=== PATIENT | female | born 1985 | race African-American/Black ===

== ENCOUNTER 2017-04-13 18:40 | Emergency (ER) | payer BC ==
--- NOTE | 2017-04-13 19:01 | EDM.PDOC ---
ED HPI GENERAL MEDICAL PROBLEM - General Chief Complaint: Genitourinary Problem Stated Complaint: PAIN DURING URINATION Time Seen by Provider: 04/13/17 18:58 Source of Information: Reports: Patient History Limitations: Reports: No Limitations - History of Present Illness INITIAL COMMENTS - FREE TEXT/NARRATIVE: Patient is a 31-year-old female who presents to the ED complaining of painful urination that started this past . States is progressively worsened. She does have a history of UTIs in the past to which she states symptoms are similar to previous episodes. She denies any fever/chills, nausea/vomiting, abdominal pain, back pain, or any additional complaints. Patient states she is not she had a tubal ligation. She is sexually active in does go to the bathroom after having intercourse. She denies any history of STDs, abnormal vaginal discharge, and vaginal bleeding. Lower Pelvic Pain Score (Numeric/FACES): 5 - Related Data Allergies Allergy/AdvReac Type Severity Reaction Status Date / Time No Known Allergies Allergy Verified 04/13/17 18:50 Home Meds: Home Meds Nitrofurantoin Monohyd/M-Cryst [Macrobid 100 mg Capsule] 100 mg PO BID #10 capsule 04/13/17 [Rx] Past Medical History - Past Health History Medical/Surgical History: Denies Medical/Surgical History Social & Family History - Family History Family Medical History: Noncontributory - Tobacco Use Smoking Status *Q: Never Smoker Second Hand Smoke Exposure: No - Caffeine Use Caffeine Use: Reports: Soda, Tea - Recreational Drug Use Recreational Drug Use: No ED ROS GENERAL - Review of Systems Review Of Systems: ROS reveals no pertinent complaints other than HPI. ED EXAM, RENAL/ - Physical Exam Exam: See Below Exam Limited By: No Limitations General Appearance: Alert, WD/WN, No Apparent Distress Ears: Normal External Exam, Hearing Grossly Normal Nose: Normal Inspection Throat/Mouth: Normal Voice, No Airway Compromise Neck: Normal Inspection, Supple Respiratory/Chest: No Respiratory Distress, Lungs Clear, Normal Breath Sounds, No Accessory Muscle Use Cardiovascular: Normal Peripheral Pulses, Regular Rate, Rhythm GI/Abdominal: Normal Bowel Sounds, Soft, Non-Tender Back Exam: No: CVA Tenderness (L), CVA Tenderness (R) Neurological: Alert, Oriented, CN II-XII Intact, Normal Cognition, No Motor/ Sensory Deficits Psychiatric: Normal Affect, Normal Mood Skin Exam: Warm, Dry, Intact, Normal Color Course - Vital Signs Last Recorded V/S: Last Vital Signs Temp 98.4 F 04/13/17 18:51 Pulse 73 04/13/17 18:51 Resp 18 04/13/17 18:51 BP 111/71 04/13/17 18:51 Pulse Ox 100 04/13/17 18:51 - Orders/Labs/Meds Orders: Active Orders 24 hr Category Date Time Status CULTURE URINE [RM] Stat Lab 04/13/17 19:00 Results Labs: Laboratory Tests 04/13/17 Range/Units 19:00 Urine Color Yellow (Yellow) Urine Appearance Slt cloudy H (Clear) Urine pH 7.0 (5.0-8.0) Ur Specific [place] 1.020 (1.005-1.030) Urine Protein Trace H (Negative) Urine Glucose (UA) Negative (Negative) Urine Ketones Negative (Negative) Urine Occult Blood Trace-intact H (Negative) Urine Nitrite Negative (Negative) Urine Bilirubin Negative (Negative) Urine Urobilinogen 1.0 (0.2-1.0) Ur Leukocyte Esterase 1+ H (Negative) Urine RBC 5-10 H (0-5) /hpf Urine WBC 50-75 H (0-5) /hpf Ur Epithelial Cells 10-20 H (0-5) /hpf Urine Bacteria Moderate H (FEW) /hpf Urine Mucus Few (FEW) /hpf Meds: Medications Discontinued Medications Generic Name Dose Route Start Last Admin Trade Name Freq PRN Reason Stop Dose Admin Nitrofurantoin Macrocrystals 100 mg 04/13/17 19:29 04/13/17 19:33 Macrobid PO 04/13/17 19:30 100 mg ONETIME ONE Administration - Re-Assessments/Exams Free Text/Narrative Re-Assessment/Exam: Ordered UA. UA results: Urine is yellow, slightly cloudy, trace protein, occult blood trace , leukocyte Estrace 1+, urine rbc's 5-10, urine wbc's 50-75, urine epithelial cells 10-20, urine bacteria moderate. Order Macrobid 100 mg by mouth. We'll discharge patient home with instructions as documented. Departure - Departure Time of Disposition: 19:37 Disposition: Home, Self-Care 01 Condition: Good Clinical Impression: UTI, Urinary tract infectious disease - Discharge Information Prescriptions: Nitrofurantoin Monohyd/M-Cryst [Macrobid 100 mg Capsule] 100 mg PO BID #10 capsule Instructions: Urinary Tract Infection, Adult Referrals: PCP,Not In Area [Primary Care Provider] - Forms: ED Department Discharge Additional Instructions: Take the full course of antibiotics as prescribed. Push the fluids. Take ibuprofen and Tylenol in alternating fashion for pain. Follow-up with your primary care provider at completion of therapy to ensure resolution. Return to ED as needed for any new or worsening symptoms. - My Orders Last 24 Hours: My Active Orders 04/13/17 19:00 CULTURE URINE [RM] Stat - Assessment/Plan Last 24 Hours: My Active Orders 04/13/17 19:00 CULTURE URINE [RM] Stat
[2017-04-13 19:02] VITALS: BP 111/71
[2017-04-13] MEDS ORDERED: Nitrofurantoin Monohydrate/Macrocrystalline 100 MG Cap PO ONE (19:29)
== END 2017-04-13 19:50 | disposition home or self-care (01) ==
LOC: JD.ED 18:40
DX: N39.0 Urinary tract infection, site not specified (principal)
CPT/HCPCS: 81001; 87086; 87088; 87186; 99283; A9270

== ENCOUNTER 2017-05-07 20:13 | Emergency (ER) | payer SELFPAY ==
--- NOTE | 2017-05-07 23:03 | EDM.PDOC ---
ED HPI GENERAL MEDICAL PROBLEM - General Chief Complaint: Genitourinary Problem Stated Complaint: POSS UTI Time Seen by Provider: 05/07/17 22:40 Source of Information: Reports: Patient History Limitations: Reports: No Limitations - History of Present Illness INITIAL COMMENTS - FREE TEXT/NARRATIVE: Patient is a 31-year-old female who presents to the ED complaining of a burning sensation with urination. She was evaluated April 13, 2017 and placed on Macrobid. She's taken the full course as prescribed. Continues to have burning sensation with urination. No abnormal vaginal discharge. She notes there is a foul order with her urine. No history of STDs. Patient is currently in a monogamous relationship. is being seen in the ED for similar symptoms. She has not had any sexual intercourse since being last evaluated. Denies fever/chills, nausea/vomiting, abdominal pain, or additional complaint. - Related Data Allergies Allergy/AdvReac Type Severity Reaction Status Date / Time No Known Allergies Allergy Verified 05/07/17 20:48 Home Meds: Home Meds Ciprofloxacin HCl [Cipro] 500 mg PO BID #14 tablet 05/07/17 [Rx] Past Medical History - Past Health History Medical/Surgical History: Denies Medical/Surgical History Social & Family History - Family History Family Medical History: Noncontributory - Tobacco Use Smoking Status *Q: Never Smoker Second Hand Smoke Exposure: No - Caffeine Use Caffeine Use: Reports: Coffee - Recreational Drug Use Recreational Drug Use: No ED ROS GENERAL - Review of Systems Review Of Systems: ROS reveals no pertinent complaints other than HPI. ED EXAM, RENAL/ - Physical Exam Exam: See Below Exam Limited By: No Limitations General Appearance: Alert, WD/WN, No Apparent Distress Ears: Hearing Grossly Normal Nose: Normal Inspection Throat/Mouth: Normal Inspection Neck: Normal Inspection, Supple Respiratory/Chest: No Respiratory Distress, No Accessory Muscle Use Cardiovascular: Normal Peripheral Pulses, Regular Rate, Rhythm GI/Abdominal: Normal Bowel Sounds, Soft, Non-Tender, No Organomegaly, No Distention (Female) Exam: Deferred Back Exam: Normal Inspection. No: CVA Tenderness (L), CVA Tenderness (R) Neurological: Alert, Oriented, Normal Cognition Psychiatric: Normal Affect, Normal Mood Skin Exam: Warm, Dry, Intact, Normal Color Course - Vital Signs Last Recorded V/S: Last Vital Signs Temp 97.7 F 05/07/17 20:45 Pulse 96 05/07/17 23:38 Resp 18 05/07/17 23:38 BP 145/80 H 05/07/17 23:38 Pulse Ox 96 05/07/17 23:38 - Orders/Labs/Meds Orders: Active Orders 24 hr Category Date Time Status CULTURE URINE [RM] Stat Lab 05/07/17 20:50 Received Labs: Laboratory Tests 05/07/17 05/07/17 Range/Units 20:50 21:50 Urine Color Yellow (Yellow) Urine Appearance Clear (Clear) Urine pH 6.0 (5.0-8.0) Ur Specific [place] > or = 1.030 (1.005-1.030) Urine Protein 1+ H (Negative) Urine Glucose (UA) Negative (Negative) Urine Ketones Negative (Negative) Urine Occult Blood Negative (Negative) Urine Nitrite Positive H (Negative) Urine Bilirubin Negative (Negative) Urine Urobilinogen 1.0 (0.2-1.0) Ur Leukocyte Esterase Trace H (Negative) Urine RBC 0-5 (0-5) /hpf Urine WBC 10-20 H (0-5) /hpf Ur Epithelial Cells 0-5 (0-5) /hpf Urine Bacteria Many H (FEW) /hpf Urine Mucus Few (FEW) /hpf C trachomatis DNA (PCR) Not detected N gonorrhoeae DNA (PCR) Not detected - Re-Assessments/Exams Free Text/Narrative Re-Assessment/Exam: UA revealed positive nitrates, positive proteins, trace leukocyte Estrace, urine wbc's 10-20, urine bacteria many. Previously urine culture revealed Escherichia coli sensitive to Macrobid and Cipro. Will obtain urine culture at this time. Will start the patient on ciprofloxacin 500 mg twice a day for 7 days. Urine GC results are still pending this is low likelihood of being the cause. was checked for GC at the same time which came back negative. Will discharge patient home with instructions as documented. 05/08/17 10:55 GC was negative. Patient was notified. Departure - Departure Time of Disposition: 23:26 Disposition: Home, Self-Care 01 Condition: Good Clinical Impression: UTI, Urinary tract infectious disease - Discharge Information Prescriptions: Ciprofloxacin HCl [Cipro] 500 mg PO BID #14 tablet Instructions: Urinary Tract Infection, Adult, [id number] Referrals: PCP,None [Primary Care Provider] - Swati Foreman PA [Physician Cashier General] - Forms: ED Department Discharge Additional Instructions: Take the full course of antibiotics as prescribed. Push the fluids. Refrain from any sexual intercourse until symptoms have resolved. Follow-up with her primary care provider at [facility] [place] [facility] [place] and one week for reevaluation. Take Tylenol and ibuprofen in alternating fashion for pain. Can use Azo urinary pain relief 2 tabs by mouth 3 times a day when necessary for pain for 2 days. You will be notified if urine culture recommends a different antibiotic to be used. Return to the ED for any new or worsening symptoms. Testing for gonorrhea/chlamydia is pending. You will be notified if this comes back positive. Alternative antibiotic treatment will be required. - My Orders Last 24 Hours: My Active Orders 05/07/17 20:50 CULTURE URINE [RM] Stat - Assessment/Plan Last 24 Hours: My Active Orders 05/07/17 20:50 CULTURE URINE [RM] Stat
[2017-05-07 23:26] LABS: C. TRACHOMATIS BY PCR NOT DETECTED; N. GONORRHOEAE BY PCR NOT DETECTED
[2017-05-08 00:29] VITALS: BP 145/80
== END 2017-05-07 23:38 | disposition home or self-care (01) ==
LOC: JD.ED 20:13
DX: N39.0 Urinary tract infection, site not specified (principal)
CPT/HCPCS: 81001; 87086; 87088; 87186; 87491; 87591; 99283; 99284

== ENCOUNTER 2017-10-11 20:59 | Emergency (ER) | payer SELFPAY ==
[2017-10-11 21:21] VITALS: BP 123/78
[2017-10-11] MEDS ORDERED: diphenhydrAMINE 50 MG/ML SDV IVPUSH ONE (21:56)
[2017-10-11] MEDS ORDERED: Sodium Chloride 0.9% 1,000 ML IV ONE (21:56)
[2017-10-11] MEDS ORDERED: Sodium Chloride 0.9% 10 ML Syringe FLUSH PRN (21:56)
[2017-10-11] MEDS ORDERED: Metoclopramide 10 MG/2 ML SDV IVPUSH ONE (21:58)
--- NOTE | 2017-10-11 22:50 | EDM.PDOC ---
ED HPI GENERAL MEDICAL PROBLEM - General Chief Complaint: Neurological Problem Stated Complaint: DIZZY Time Seen by Provider: 10/11/17 21:35 Source of Information: Reports: Patient History Limitations: Reports: No Limitations - History of Present Illness INITIAL COMMENTS - FREE TEXT/NARRATIVE: 32 year old female presents for evaluation and treatment of dizziness and a headache. Patient reports she has been feeling dizzy for the last 2 weeks. Reports the dizziness improves when she lays down. Patient reports today around 1999 she was at work and developed a sudden onset of a severe headache. Reports the headache is located across the front of her head. Reports associated nausea , neck pain and photophobia. No fevers, vomiting, cough, congestion or cold symptoms. Patient reports she does not get headaches often. No treatment prior to arrival in the ER. She did take some aleve on Saturday. Patient reports a chance of . LMP was 09-23-17. Duration: Week(s): (2) Location: Reports: Head Associated Symptoms: Reports: Headaches. Denies: Cough, Fever/Chills Headache Pain Score (Numeric/FACES): 6 - Related Data Allergies Allergy/AdvReac Type Severity Reaction Status Date / Time No Known Allergies Allergy Verified 05/07/17 20:48 Home Meds: Home Meds Amoxicillin/Clavulanate K [Augmentin 875 MG/125 MG] 1 tab PO Q12HR #20 tablet [Rx] Past Medical History - Past Health History Medical/Surgical History: Denies Medical/Surgical History - Past Surgical History Female Surgical History: Reports: Section Social & Family History - Family History Family Medical History: Noncontributory - Tobacco Use Smoking Status *Q: Never Smoker Second Hand Smoke Exposure: No - Caffeine Use Caffeine Use: Reports: Coffee, Soda - Recreational Drug Use Recreational Drug Use: No ED ROS GENERAL - Review of Systems Review Of Systems: See Below Constitutional: Denies: Fever HEENT: Reports: Other (reports photophobia). Denies: Ear Pain, Throat Pain Respiratory: Denies: Cough GI/Abdominal: Reports: Nausea. Denies: Vomiting Musculoskeletal: Reports: Neck Pain Neurological: Reports: Dizziness, Headache ED EXAM, DIZZINESS - Physical Exam Exam: See Below Exam Limited By: No Limitations General Appearance: Alert, WD/WN, Mild Distress, Obese Eye Exam: Bilateral Eye: EOMI, Normal Inspection, PERRL Ears: Normal External Exam, Normal Canal, Hearing Grossly Normal, Normal TMs Nose: Normal Inspection Throat/Mouth: Normal Inspection, Normal Lips, Normal Voice, No Airway Compromise Head Exam: Atraumatic, Normocephalic, Sinus Tenderness (bileral frontal sinus tenderness) Neck: Normal Inspection, Supple, Non-Tender, Full Range of Motion Respiratory/Chest: No Respiratory Distress, Lungs Clear, Normal Breath Sounds Cardiovascular: Normal Peripheral Pulses, Regular Rate, Rhythm, No Murmur Psychiatric: Normal Affect, Normal Mood Skin Exam: Warm, Dry, Normal Color Course - Vital Signs Last Recorded V/S: Last Vital Signs Temp 36.2 C 10/11/17 21:18 Pulse 65 10/11/17 21:18 Resp 20 10/11/17 21:18 BP 123/78 10/11/17 21:18 Pulse Ox 100 10/11/17 21:18 Orthostatic Blood Pressure [ 144/73 Standing] Orthostatic Blood Pressure [ 128/81 Sitting] Orthostatic Blood Pressure [ 132/74 Supine] - Orders/Labs/Meds Labs: Laboratory Tests 10/11/17 10/11/17 10/11/17 Range/Units 22:05 22:20 22:20 WBC 10.39 H (3.98-10.04) K/mm3 RBC 5.09 (3.98-5.22) M/mm3 Hgb 11.4 (11.2-15.7) gm/L Hct 36.4 (34.1-44.9) % MCV 71.5 L (79.4-94.8) fl MCH 22.4 L (25.6-32.2) pg MCHC 31.3 L (32.2-35.5) g/dl RDW Std Deviation 45.2 (36.4-46.3) fL Plt Count 407 H (182-369) K/mm3 MPV 10.3 (9.4-12.3) fl Neut % (Auto) 46.3 (34.0-71.1) % Lymph % (Auto) 44.6 (19.3-51.7) % [place] % (Auto) 7.7 (4.7-12.5) % Eos % (Auto) 0.9 (0.7-5.8) Baso % (Auto) 0.3 (0.1-1.2) % Neut # (Auto) 4.82 (1.56-6.13) K/mm3 Lymph # (Auto) 4.63 H (1.18-3.74) K/mm3 [place] # (Auto) 0.80 H (0.24-0.36) K/mm3 Eos # (Auto) 0.09 (0.04-0.36) K/mm3 Baso # (Auto) 0.03 (0.01-0.08) K/mm3 Manual Slide Review Abnormal smear Sodium 139 (136-145) mEq/L Potassium 3.7 (3.5-5.1) mEq/L Chloride 103 (98-107) mEq/L Carbon Dioxide 27 (21-32) mEq/L Anion Gap 12.7 (5-15) BUN 12 (7-18) mg/dL Creatinine 1.0 (0.55-1.02) mg/dL Est Cr Clr Drug Dosing 69.10 mL/min Estimated GFR (MDRD) > 60 (>60) mL/min BUN/Creatinine Ratio 12.0 L (14-18) Glucose 88 (74-106) mg/dL Calcium 9.2 (8.5-10.1) mg/dL Total Bilirubin 0.2 (0.2-1.0) mg/dL AST 16 (15-37) U/L ALT 26 (14-59) U/L Alkaline Phosphatase 110 (46-116) U/L C-Reactive Protein 1.3 H* (<1.0) mg/dL Total Protein 8.3 H (6.4-8.2) g/dl Albumin 3.5 (3.4-5.0) g/dl Globulin 4.8 gm/dL Albumin/Globulin Ratio 0.7 L (1-2) HCG, Qual (NEGATIVE) Urine Color Yellow (Yellow) Urine Appearance Clear (Clear) Urine pH 6.0 (5.0-8.0) Ur Specific [place] > or = 1.030 (1.005-1.030) Urine Protein Negative (Negative) Urine Glucose (UA) Negative (Negative) Urine Ketones Trace H (Negative) Urine Occult Blood Trace-lysed H (Negative) Urine Nitrite Negative (Negative) Urine Bilirubin Negative (Negative) Urine Urobilinogen 0.2 (0.2-1.0) Ur Leukocyte Esterase Negative (Negative) Urine RBC 0-5 (0-5) /hpf Urine WBC 0-5 (0-5) /hpf Ur Epithelial Cells 5-10 H (0-5) /hpf Urine Bacteria Few (FEW) /hpf Urine Mucus Many H (FEW) /hpf 10/11/ Range/Units 22:20 WBC (3.98-10.04) K/mm3 RBC (3.98-5.22) M/mm3 Hgb (11.2-15.7) gm/L Hct (34.1-44.9) % MCV (79.4-94.8) fl MCH (25.6-32.2) pg MCHC (32.2-35.5) g/dl RDW Std Deviation (36.4-46.3) fL Plt Count (182-369) K/mm3 MPV (9.4-12.3) fl Neut % (Auto) (34.0-71.1) % Lymph % (Auto) (19.3-51.7) % [place] % (Auto) (4.7-12.5) % Eos % (Auto) (0.7-5.8) Baso % (Auto) (0.1-1.2) % Neut # (Auto) (1.56-6.13) K/mm3 Lymph # (Auto) (1.18-3.74) K/mm3 [place] # (Auto) (0.24-0.36) K/mm3 Eos # (Auto) (0.04-0.36) K/mm3 Baso # (Auto) (0.01-0.08) K/mm3 Manual Slide Review Sodium (136-145) mEq/L Potassium (3.5-5.1) mEq/L Chloride (98-107) mEq/L Carbon Dioxide (21-32) mEq/L Anion Gap (5-15) BUN (7-18) mg/dL Creatinine (0.55-1.02) mg/dL Est Cr Clr Drug Dosing mL/min Estimated GFR (MDRD) (>60) mL/min BUN/Creatinine Ratio (14-18) Glucose (74-106) mg/dL Calcium (8.5-10.1) mg/dL Total Bilirubin (0.2-1.0) mg/dL AST (15-37) U/L ALT (14-59) U/L Alkaline Phosphatase (46-116) U/L C-Reactive Protein (<1.0) mg/dL Total Protein (6.4-8.2) g/dl Albumin (3.4-5.0) g/dl Globulin gm/dL Albumin/Globulin Ratio (1-2) HCG, Qual Negative (NEGATIVE) Urine Color (Yellow) Urine Appearance (Clear) Urine pH (5.0-8.0) Ur Specific [place] (1.005-1.030) Urine Protein (Negative) Urine Glucose (UA) (Negative) Urine Ketones (Negative) Urine Occult Blood (Negative) Urine Nitrite (Negative) Urine Bilirubin (Negative) Urine Urobilinogen (0.2-1.0) Ur Leukocyte Esterase (Negative) Urine RBC (0-5) /hpf Urine WBC (0-5) /hpf Ur Epithelial Cells (0-5) /hpf Urine Bacteria (FEW) /hpf Urine Mucus (FEW) /hpf Meds: Medications Discontinued Medications Generic Name Dose Route Start Last Admin Trade Name Richarq PRN Reason Stop Dose Admin Diphenhydramine HCl 50 mg 10/11/17 21:56 10/11/17 22:18 Benadryl IVPUSH 10/11/17 21:57 50 mg ONETIME ONE Administration Sodium Chloride 1,000 mls @ 999 mls/hr 10/11/17 21:56 10/11/17 22:18 Normal Saline IV 10/11/17 22:56 999 mls/hr ONETIME ONE Administration Metoclopramide HCl 10 mg 10/11/17 21:58 10/11/17 22:18 Reglan IVPUSH 10/11/17 21:59 10 mg ONETIME ONE Administration Sodium Chloride 10 ml 10/11/17 21:56 10/11/17 22:18 Saline Flush FLUSH 10 ml ASDIRECTED PRN Administration Keep Vein Open - Radiology Interpretation Free Text/Narrative:: CT of the head without contrast impression per [facility]: No intracranial mass effect , hemorrhage or acute large territory infarct. CT Results Date: 10/11/17 - Re-Assessments/Exams Free Text/Narrative Re-Assessment/Exam: 10/11/17 23:[address] and lab results with the patient. She feels improved after fluids, Benadryl and Zofran. Offered additional medication for her headache but she declined. Feels comfortable going home at this time. Will discharge home. Discharge instructions as documented. Departure - Departure Time of Disposition: 23:46 Disposition: Home, Self-Care 01 Condition: Fair Clinical Impression: Sinusitis - Discharge Information Prescriptions: Amoxicillin/Clavulanate K [Augmentin 875 MG/125 MG] 1 tab PO Q12HR #20 tablet Instructions: Sinusitis, Adult, [id number] Referrals: PCP,None [Primary Care Provider] - Moon Daigle PA-C [Physician Supervisor Metal Placing] - Forms: ED Department Discharge, ED Return to Work/School Form Additional Instructions: take the augmentin as prescribed. 1 tab twice a day for 10 days. Take this with food. [id number] Tylenol or Motrin as for additional headache relief. make sure you are drinking plenty of fluids. note for work given. follow-up with family medicine in 2 weeks for further management care. recommend Yumiko Daigle at the [facility], [place], operated by [facility]. please call [phone] schedule with her. please return to er if your symptoms change or worsen.
--- NOTE | 2017-10-15 08:00 | CT ---
Head CT Technique: Multiple axial sections through the brain were obtained. Intravenous contrast was not utilized. Comparison: No prior intracranial imaging. Findings: Ventricles along with basal cisterns and sulci over the convexities are within normal limits for the patient's age. No abnormal parenchymal densities are seen. No evidence of intracranial hemorrhage. No midline shift or mass effect is seen. Bone window settings were reviewed which show no acute calvarial abnormality. Visualized sinuses are clear. Impression: 1. No acute intracranial abnormality is seen. No acute calvarial abnormality is identified. Diagnostic code #1 I agree with preliminary report issued by [facility] ([facility] report finalized on 10/12/17, 12:36 AM Central Time)
== END 2017-10-11 23:55 | disposition home or self-care (01) ==
LOC: JD.ED 20:59
DX: J32.9 Chronic sinusitis, unspecified (principal)
CPT/HCPCS: 36415; 70450; 80053; 81001; 84703; 85025; 86140; 96361; 96374; 96375; 99284; J1200; J2765; J7040; J7050

== ENCOUNTER 2018-03-01 17:26 | Emergency (ER) | payer OTHER ==
[2018-03-01 17:40] VITALS: BP 110/64
[2018-03-01] MEDS ORDERED: Sodium Chloride 0.9% 10 ML Syringe FLUSH PRN (18:08)
[2018-03-01] MEDS ORDERED: Famotidine 20 MG/2 ML SDV IVPUSH ONE (18:11)
[2018-03-01] MEDS ORDERED: Ketorolac 30 MG/ML SDV IVPUSH ONE (18:11)
--- NOTE | 2018-03-01 18:26 | EDM.PDOC ---
ED HPI GENERAL MEDICAL PROBLEM - General Chief Complaint: Abdominal Pain Stated Complaint: CHEST PAINS X 3DAYS Time Seen by Provider: 03/01/18 18:04 Source of Information: Reports: Patient History Limitations: Reports: No Limitations - History of Present Illness INITIAL COMMENTS - FREE TEXT/NARRATIVE: 32-year-old female presents for evaluation and treatment of left-sided chest discomfort. Patient reports has been present for the last 3 days. Reports the pain has been intermittent. Identifies an area below her left breast. She denies any nausea, vomiting, shortness of breath, cough or any abdominal pain. Patient denies any pain radiating into her back. No pain or swelling in her legs. No recent travel. Left Upper Abdomen Pain Score (Numeric/FACES): 7 - Related Data Allergies Allergy/AdvReac Type Severity Reaction Status Date / Time No Known Allergies Allergy Verified 05/07/17 20:48 Home Meds: Home Meds Amitriptyline [Elavil] 25 mg PO BEDTIME 03/01/18 [History] FLUoxetine HCl [Prozac] 20 mg PO DAILY 03/01/18 [History] Past Medical History - Past Health History Medical/Surgical History: Denies Medical/Surgical History Neurological History: Reports: Migraines Psychiatric History: Reports: Depression - Past Surgical History Female Surgical History: Reports: Section Social & Family History - Family History Family Medical History: Noncontributory - Tobacco Use Smoking Status *Q: Never Smoker - Caffeine Use Caffeine Use: Reports: Coffee, Soda, Tea - Recreational Drug Use Recreational Drug Use: No ED ROS GENERAL - Review of Systems Review Of Systems: See Below Constitutional: Denies: Fever, Chills Respiratory: Denies: Shortness of Breath Cardiovascular: Reports: Chest Pain (left chest) GI/Abdominal: Denies: Abdominal Pain, Nausea, Vomiting Musculoskeletal: Denies: Back Pain, Leg Pain ED EXAM, GI/ABD - Physical Exam Exam: See Below Exam Limited By: No Limitations General Appearance: Alert, WD/WN, Mild Distress, Obese Respiratory/Chest: No Respiratory Distress, Lungs Clear, Normal Breath Sounds Cardiovascular: Normal Peripheral Pulses, Regular Rate, Rhythm, No Murmur GI/Abdominal Exam: Normal Bowel Sounds, Soft, Non-Tender Extremities: Normal Inspection Neurological: Alert, Oriented, Normal Cognition Psychiatric: Normal Affect, Normal Mood Skin Exam: Warm, Dry, Normal Color EKG INTERPRETATION EKG Date: 03/01/18 Time: 18:35 Rhythm: NSR Rate (Beats/Min): 55 [place]: Normal P-Wave: Present QRS: Normal ST-T: Normal QT: Normal EKG Interpretation Comments: NSR at 55 bpm. T wave inversion in V1 and III. Slight ST elevation in V2. Reviewed by myself and Dr. Lee. Course - Vital Signs Last Recorded V/S: Last Vital Signs Temp 36.4 C 03/01/18 17:38 Pulse 67 03/01/18 17:38 Resp 20 03/01/18 17:38 BP 110/64 03/01/18 17:38 Pulse Ox 98 03/01/18 17:38 - Orders/Labs/Meds Orders: Active Orders 24 hr Category Date Time Status Cardiac Monitoring [RC] . DIRECTED Care 03/01/18 18:04 Active EKG Documentation Completion [RC] ASDIRECTED Care 03/01/18 18:07 Active Peripheral IV Care [RC] . DIRECTED Care 03/01/18 18:08 Active Chest 2V [CR] Stat Exams 03/01/18 18:08 Taken Peripheral IV Insertion Adult [OM.PC] Routine Oth 03/01/18 18:08 Ordered EKG 12 Lead [EK] Stat Ther 03/01/18 18:04 Ordered Labs: Laboratory Tests 03/01/18 03/01/18 03/01/18 Range/Units 18:12 18:12 18:15 WBC 9.18 (3.98-10.04) K/mm3 RBC 4.83 (3.98-5.22) M/mm3 Hgb 10.6 L (11.2-15.7) gm/L Hct 34.3 (34.1-44.9) % MCV 71.0 L (79.4-94.8) fl MCH 21.9 L (25.6-32.2) pg MCHC 30.9 L (32.2-35.5) g/dl RDW Std Deviation 45.4 (36.4-46.3) fL Plt Count 389 H (182-369) K/mm3 MPV 10.0 (9.4-12.3) fl Neutrophils % (Manual) 47 (40-60) % Band Neutrophils % 0 (0-10) % Lymphocytes % (Manual) 47 H (20-40) % Atypical Lymphs % 0 % Monocytes % (Manual) 5 (2-10) % Eosinophils % (Manual) 1 (0.7-5.8) % Basophils % (Manual) 0 L (0.1-1.2) Platelet Estimate Adequate Plt Morphology Comment Normal Hypochromasia 1+ slight Poikilocytosis 2+ moderate Anisocytosis 2+ moderate Microcytosis 2+ moderate RBC Morph Comment Not Reportable D-Dimer, Quantitative 0.24 (0.19-0.50) mg/L Sodium 136 (136-145) mEq/L Potassium 4.0 (3.5-5.1) mEq/L Chloride 103 (98-107) mEq/L Carbon Dioxide 27 (21-32) mEq/L Anion Gap 10.0 (5-15) BUN 12 (7-18) mg/dL Creatinine 0.9 (0.55-1.02) mg/dL Est Cr Clr Drug Dosing 80.00 mL/min Estimated GFR (MDRD) > 60 (>60) mL/min BUN/Creatinine Ratio 13.3 L (14-18) Glucose 89 (74-106) mg/dL Calcium 8.9 (8.5-10.1) mg/dL Total Bilirubin 0.3 (0.2-1.0) mg/dL AST 16 (15-37) U/L ALT 22 (14-59) U/L Alkaline Phosphatase 92 (46-116) U/L Troponin I < 0.017 (0.00-0.056) ng/mL C-Reactive Protein 0.9 (<1.0) mg/dL Total Protein 7.5 (6.4-8.2) g/dl Albumin 3.2 L (3.4-5.0) g/dl Globulin 4.3 gm/dL Albumin/Globulin Ratio 0.7 L (1-2) Lipase 98 (73-393) U/L Meds: Medications Discontinued Medications Generic Name Dose Route Start Last Admin Trade Name Freq PRN Reason Stop Dose Admin Famotidine 20 mg 03/01/18 18:11 03/01/18 18:24 Pepcid IVPUSH 03/01/18 18:12 20 mg ONETIME ONE Administration Ketorolac Tromethamine 30 mg 03/01/18 18:11 03/01/18 18:22 Toradol IVPUSH 03/01/18 18:12 30 mg ONETIME ONE Administration Sodium Chloride 10 ml 03/01/18 18:08 03/01/18 18:21 Saline Flush FLUSH 10 ml ASDIRECTED PRN Administration Keep Vein Open - Radiology Interpretation Free Text/Narrative:: Chest x-ray shows no acute intrathoracic process. - Re-Assessments/Exams Free Text/Narrative Re-Assessment/Exam: 03/01/18 20:02 I checked on the patient. Her chest pain has resolved with the Pepcid and the Toradol. I do feel this is chest wall in origin. She was very point tender to the intercostal muscle on the left side in between ribs 6 and 7. We will discharge her home at this time. Discharge instructions as documented. Departure - Departure Time of Disposition: 20:07 Disposition: Home, Self-Care 01 Condition: Good Clinical Impression: Chest wall pain - Discharge Information Instructions: Chest Wall Pain, [id number] Referrals: Marichuy Cobb M[employer]IPLE [employer]W OPERATOR [Primary Care Provider] - Forms: ED Department Discharge Additional Instructions: [id number] Tylenol or Motrin as needed for pain relief. You may also attempt to something like heat or ice for additional pain relief. Follow-up with your primary care provider if your symptoms have not improved by the end of this week. Please return the ER if your symptoms change or worsen. - My Orders Last 24 Hours: My Active Orders 03/01/18 18:04 Cardiac Monitoring [RC] . DIRECTED EKG 12 Lead [EK] Stat 03/01/18 18:07 EKG Documentation Completion [RC] ASDIRECTED 03/01/18 18:08 Peripheral IV Care [RC] . DIRECTED Chest 2V [CR] Stat Peripheral IV Insertion Adult [OM.PC] Routine - Assessment/Plan Last 24 Hours: My Active Orders 03/01/18 18:04 Cardiac Monitoring [RC] . DIRECTED EKG 12 Lead [EK] Stat 03/01/18 18:07 EKG Documentation Completion [RC] ASDIRECTED 03/01/18 18:08 Peripheral IV Care [RC] . DIRECTED Chest 2V [CR] Stat Peripheral IV Insertion Adult [OM.PC] Routine
--- NOTE | 2018-03-02 14:14 | CR ---
Chest: Two views of the chest were obtained. Comparison: No prior chest x-ray. Heart size and mediastinum are normal. Lungs are clear. Bony structures appear within normal limits. Impression: 1. Nothing acute is identified on two-view chest x-ray. Diagnostic code #1
== END 2018-03-01 20:15 | disposition home or self-care (01) ==
LOC: JD.ED 17:26
DX: R07.89 Other chest pain (principal); Z79.899 Other long term (current) drug therapy
CPT/HCPCS: 36415; 71046; 80053; 83690; 84484; 85007; 85027; 85379; 86140; 93005; 96374; 96375; 99284; J1885; J7050; 93010

== ENCOUNTER 2019-03-04 17:00 | Emergency (ER) | payer SELFPAY ==
[2019-03-04 17:17] VITALS: BP 113/68
[2019-03-04] MEDS ORDERED: Ketorolac 30 MG/ML SDV IM ONE (17:47)
--- NOTE | 2019-03-04 17:56 | EDM.PDOC ---
ED HPI GENERAL MEDICAL PROBLEM - General Chief Complaint: Back Pain or Injury Stated Complaint: BACK PAIN Time Seen by Provider: 03/04/19 17:24 Source of Information: Reports: Patient History Limitations: Reports: No Limitations - History of Present Illness INITIAL COMMENTS - FREE TEXT/NARRATIVE: 33 yo F comes in today complaining of left mid-back pain that began after carrying a heavy load of laundry at the [employer]. She states she called the ED and was told to take Aleve, but it has not helped. She describes the pain as a dull 8/10, off and on, sharp at times, worse with movement and breathing, doesn't radiate anywhere. She is unable to straighten her back at this time. She denies any direct trauma to the back, numbness/tingling, abdominal pain, SOB , N/V/D, constipation, dysuria or any other symptoms at this time. She has never had pain like this before. No other concerns at this time. She does not have a PCP. Would like a referral. Bilateral Middle Back Pain Score (Numeric/FACES): 8 - Related Data Allergies Allergy/AdvReac Type Severity Reaction Status Date / Time No Known Allergies Allergy Verified 03/04/19 17:17 Home Meds: Home Meds Amitriptyline [Elavil] 25 mg PO BEDTIME 03/01/18 [History] FLUoxetine HCl [Prozac] 20 mg PO DAILY 03/01/18 [History] Past Medical History - Past Health History Medical/Surgical History: Denies Medical/Surgical History Neurological History: Reports: Migraines Psychiatric History: Reports: Depression - Past Surgical History Female Surgical History: Reports: Section Social & Family History - Family History Family Medical History: Noncontributory - Tobacco Use Smoking Status *Q: Never Smoker Second Hand Smoke Exposure: No - Caffeine Use Caffeine Use: Reports: Coffee - Recreational Drug Use Recreational Drug Use: No ED ROS GENERAL - Review of Systems Review Of Systems: See Below Constitutional: Reports: No Symptoms. Denies: Fever, Chills HEENT: Reports: No Symptoms Respiratory: Reports: Pleuritic Chest Pain. Denies: Shortness of Breath, Cough Cardiovascular: Reports: No Symptoms Endocrine: Reports: No Symptoms GI/Abdominal: Reports: No Symptoms. Denies: Abdominal Pain, Constipation, Diarrhea, Nausea, Vomiting : Reports: No Symptoms. Denies: Discharge, Dysuria, Frequency Musculoskeletal: Reports: Back Pain (left upper back) Skin: Reports: No Symptoms Neurological: Reports: No Symptoms Psychiatric: Reports: No Symptoms Hematologic/Lymphatic: Reports: No Symptoms Immunologic: Reports: No Symptoms ED EXAM,LOWER BACK PAIN/INJURY - Physical Exam Exam: See Below Exam Limited By: No Limitations General Appearance: Alert, WD/WN, No Apparent Distress Eye Exam: Bilateral Eye: Normal Inspection Head: Atraumatic, Normocephalic Neck: Normal Inspection, Supple, Non-Tender, Full Range of Motion Respiratory/Chest: No Respiratory Distress, Lungs Clear, Normal Breath Sounds, No Accessory Muscle Use, Chest Non-Tender Cardiovascular: Normal Peripheral Pulses, Regular Rate, Rhythm, No Edema, No Gallop, No JVD, No Murmur, No Rub GI/Abdominal: Normal Bowel Sounds, Soft, Non-Tender, No Organomegaly, No Distention, No Abnormal Bruit, No Mass Back Exam: Decreased Range of Motion (unable to touch toes or straighten back), Muscle Spasm. No: Paraspinal Tenderness, Vertebral Tenderness Extremities: Normal Inspection, Normal Range of Motion, Non-Tender, No Pedal Edema, Normal Capillary Refill Neurological: Alert, Normal Mood/Affect, Normal Dorsiflexion, CN II-XII Intact, Normal Plantar Flexion, Normal Gait, Normal Reflexes, No Motor/Sensory Deficits , Oriented x 3 Psychiatric: Normal Affect, Normal Mood Skin Exam: Warm, Dry, Intact, Normal Color, No Rash Course - Vital Signs Last Recorded V/S: Last Vital Signs Temp 96.7 F 03/04/19 17:15 Pulse 83 03/04/19 17:15 Resp 16 03/04/19 17:15 BP 113/68 03/04/19 17:15 Pulse Ox 98 03/04/19 17:15 - Orders/Labs/Meds Orders: Active Orders 24 hr Category Date Time Status CXR [Chest 2V] [CR] Stat Exams 03/04/19 17:59 Taken Labs: Laboratory Tests 03/04/19 Range/Units 19:05 Urine Color Yellow (Yellow) Urine Appearance Clear (Clear) Urine pH 7.0 (5.0-8.0) Ur Specific [place] > or = 1.030 (1.005-1.030) Urine Protein Trace H (Negative) Urine Glucose (UA) Negative (Negative) Urine Ketones Negative (Negative) Urine Occult Blood Negative (Negative) Urine Nitrite Negative (Negative) Urine Bilirubin Negative (Negative) Urine Urobilinogen 1.0 (0.2-1.0) Ur Leukocyte Esterase Negative (Negative) Urine RBC 0-5 (0-5) /hpf Urine WBC 0-5 (0-5) /hpf Ur Squamous Epith Cells 5-10 H (0-5) /hpf Urine Bacteria Few (FEW) /hpf Urine Mucus Moderate H (FEW) /hpf Meds: Medications Discontinued Medications Generic Name Dose Route Start Last Admin Trade Name Richarq PRN Reason Stop Dose Admin Ketorolac Tromethamine 30 mg 03/04/19 17:47 03/04/19 17:56 Toradol IM 03/04/19 17:48 30 mg ONETIME ONE Administration Orphenadrine Citrate 100 mg 03/04/19 18:49 03/04/19 19:14 Norflex PO 03/04/19 18:50 100 mg NOW STA Administration - Re-Assessments/Exams Free Text/Narrative Re-Assessment/Exam: 03/04/19 17:48 Ordered 30 IM Toradol UA and CXR pending 03/04/19 18:[address] Griffin and myself- nothing acute seen UA pending urine collection Norflex ordered to see if helps muscle pain 03/04/19 20:05 UA negative for UTI Norflex has helped. At this time she is stable to go home. This is likely a muscle sprain, as she has no symptoms of nerve issues, no bony deformities on exam, no UTI and no constipation. Departure - Departure Time of Disposition: 20:06 Disposition: Home, Self-Care 01 Condition: Fair Clinical Impression: Back pain Qualifiers: Back pain location: thoracic back pain Chronicity: acute Back pain laterality: left Qualified Code(s): M54.6 - Pain in thoracic spine - Discharge Information *PRESCRIPTION DRUG MONITORING PROGRAM REVIEWED*: Yes *COPY OF PRESCRIPTION DRUG MONITORING REPORT IN PATIENT ISREAL: No Instructions: Back Injury Prevention, [id number], Muscle Strain, [id number] Referrals: Ludmila Greene MD [Physician] - Forms: ED Department Discharge Additional Instructions: You were seen in the ED today for back pain and pain with breathing that started after carrying a heavy load of laundry. You had a Chest Xray which showed no acute infection or bone injury. Urinalysis did not show a urine infection. At this time, you likely have a muscle strain. Will send you home with a muscle relaxer (Norflex 100mg twice per day as needed for muscle spasm and pain) and recommend over the counter ibuprofen for inflammation and pain. You can also use an ice pack or heating pad, whichever feels better, on the area. Norflex should not be taken if you are working or driving as it does cause impairment. You will be given a work note for the next 2 days so that you can stay home and rest until you have some improvement. Recommend follow up with a primary care provider, we have provided you with a recommendation for one. Please return to the ED if new or worsening symptoms. - My Orders Last 24 Hours: My Active Orders 03/04/19 17:59 CXR [Chest 2V] [CR] Stat - Assessment/Plan Last 24 Hours: My Active Orders 03/04/19 17:59 CXR [Chest 2V] [CR] Stat
[2019-03-04] MEDS ORDERED: Orphenadrine 100 MG Tab.ER PO STA (18:49)
--- NOTE | 2019-03-05 07:12 | CR ---
Chest: Two views of the chest were obtained. Comparison: Prior chest x-ray of 03/01/18. Heart size and mediastinum are within normal limits for age. Lungs are clear. Bony structures unremarkable for the patient's age. Impression: 1. Nothing acute is seen on two-view chest x-ray. Diagnostic code #1
== END 2019-03-04 20:31 | disposition home or self-care (01) ==
LOC: JD.ED 17:00
DX: M54.6 Pain in thoracic spine (principal); F32.9 Major depressive disorder, single episode, unspecified; Z79.899 Other long term (current) drug therapy
CPT/HCPCS: 71046; 81001; 96372; 99283; A9270; J1885